=== PATIENT | male | born 1970 | race Caucasian/White ===

== ENCOUNTER 2021-05-16 14:14 | Emergency (ER) | payer MEDICAID ==
[2021-05-16] MEDS ORDERED: Sodium Chloride 0.9% 10 ML Syringe FLUSH PRN (15:41)
[2021-05-16] MEDS ORDERED: Sodium Chloride 0.9% 1,000 ML IV SCH (15:45)
== END 2021-05-16 17:41 | disposition home or self-care (01) ==
LOC: JP.ED 14:14
DX: I95.1 Orthostatic hypotension (principal); E66.9 Obesity, unspecified; Z68.34 Body mass index [BMI] 34.0-34.9, adult; Z88.0 Allergy status to penicillin; Z88.2 Allergy status to sulfonamides; Z79.01 Long term (current) use of anticoagulants; Z79.899 Other long term (current) drug therapy; Z72.0 Tobacco use
CPT/HCPCS: 36415; 80053; 84484; 85025; 85379; 99283; 99284; J7030

== ENCOUNTER 2023-08-23 05:13 | Emergency (ER) | payer MEDICAID ==
[2023-08-23 05:45] LABS: BASOPHILS ABSOLUTE AUTO 0.04 K/uL (0.00-0.10); BASOPHILS PERCENT AUTO 0.4 % (0.1-1.3); EOSINOPHILS PERCENT AUTO 1.1 % (0.0-5.4); HEMOGLOBIN 12.3 g/dL (12.9-16.9); IMMATURE GRAN ABSOLUTE AUTO 0.03 K/uL (0.00-0.23); IMMATURE GRAN PERCENT AUTO 0.3 % (0.0-0.7); LYMPHOCYTES ABSOLUTE AUTO 3.33 K/uL (0.8-3.3); LYMPHOCYTES PERCENT AUTO 36.9 % (11.4-47.7); MEAN CORPUSCULAR HGB CONC 35.1 g/dL (31.6-35.5); MEAN CORPUSCULAR VOLUME 99.7 fL (81.4-99.0); MONOCYTES PERCENT AUTO 6.7 % (3.3-12.6); NEUTROPHILS ABSOLUTE AUTO 4.92 K/uL (1.0-7.6); NEUTROPHILS PERCENT AUTO 54.6 % (40.0-78.1); PLATELET COUNT,PLT 162 K/uL (130-375); RED BLOOD CELL COUNT 3.51 M/uL (4.14-5.76)
[2023-08-23 06:06] LABS: A/G RATIO 0.6 (1.2-2.2); ALANINE AMINOTRANSFERASE,ALT 35 U/L (12-78); ALBUMIN 2.4 g/dL (3.4-5.0); ALKALINE PHOSPHATASE 181 U/L (46-116); ASPARTATE AMNIOTRANSFERASE,AST 71 U/L (15-37); BILIRUBIN TOTAL 1.3 mg/dL (0.2-1.0); BLOOD UREA NITROGEN,BUN 4 mg/dL (7-18); CALCIUM 8.1 mg/dL (8.5-10.1); CARBON DIOXIDE,CO2 29 mmol/L (21-32); CHLORIDE,CL 93 mmol/L (100-108); EST CRCL DRUG DOSING (CG) 104.88 mL/min; ESTIMATED GFR 90 mL/min (>60); GLUCOSE RANDOM 113 mg/dL (74-106); POTASSIUM,K 4.2 mmol/L (3.6-5.2); PROTEIN TOTAL,TP 6.5 g/dL (6.4-8.2); SODIUM,NA 130 mmol/L (140-148)
[2023-08-23 06:07] LABS: ANION GAP 12.2 mmol/L (5.0-14.0)
[2023-08-23 06:26] LABS: INR 2.1; PROTHROMBIN TIME 20.5 sec (9.2-10.6)
== END 2023-08-23 10:30 | disposition home or self-care (01) ==
LOC: JP.ED 05:13
DX: R53.1 Weakness (principal); I11.0 Hypertensive heart disease with heart failure; I50.9 Heart failure, unspecified; E66.9 Obesity, unspecified; F17.210 Nicotine dependence, cigarettes, uncomplicated; Z68.32 Body mass index [BMI] 32.0-32.9, adult; Z79.01 Long term (current) use of anticoagulants; Z79.899 Other long term (current) drug therapy; Z88.0 Allergy status to penicillin; Z88.2 Allergy status to sulfonamides
CPT/HCPCS: 36415; 80053; 80307; 83605; 85025; 85610; 86140; 99285

== ENCOUNTER 2024-08-09 20:11 | Inpatient (IN) | payer MEDICAID, MEDICARE ==
[2024-08-09 21:13] LABS: BASOPHILS ABSOLUTE AUTO 0.03 K/uL (0.00-0.10); BASOPHILS PERCENT AUTO 0.2 % (0.1-1.3); EOSINOPHILS PERCENT AUTO 0.1 % (0.0-5.4); IMMATURE GRAN ABSOLUTE AUTO 0.07 K/uL (0.00-0.23); IMMATURE GRAN PERCENT AUTO 0.5 % (0.0-0.7); LYMPHOCYTES ABSOLUTE AUTO 1.21 K/uL (0.8-3.3); LYMPHOCYTES PERCENT AUTO 9.0 % (11.4-47.7); MONOCYTES ABSOLUTE AUTO 1.05 K/uL (0.20-0.90); MONOCYTES PERCENT AUTO 7.8 % (3.3-12.6); NEUTROPHILS ABSOLUTE AUTO 11.09 K/uL (1.0-7.6); NEUTROPHILS PERCENT AUTO 82.4 % (40.0-78.1); PLATELET COUNT,PLT 327 K/uL (130-375); RED BLOOD CELL COUNT 2.43 M/uL (4.14-5.76); WHITE BLOOD CELL COUNT,WBC 13.5 K/uL (3.2-11.0)
[2024-08-09 21:17] LABS: EOSINOPHILS ABSOLUTE AUTO 0.01 K/uL (0.00-0.40)
[2024-08-09 21:35] LABS: A/G RATIO 0.4 (1.2-2.2); ALANINE AMINOTRANSFERASE,ALT 18 U/L (12-78); ASPARTATE AMNIOTRANSFERASE,AST 26 U/L (15-37); BILIRUBIN TOTAL 1.3 mg/dL (0.2-1.0); BLOOD UREA NITROGEN,BUN 11 mg/dL (7-18); CARBON DIOXIDE,CO2 31 mmol/L (21-32); CHLORIDE,CL 93 mmol/L (100-108); CREATININE 1.2 mg/dL (0.8-1.3); EST CRCL DRUG DOSING (CG) 86.40 mL/min; ESTIMATED GFR 72 mL/min (>60); GLUCOSE RANDOM 149 mg/dL (74-106); PROTEIN TOTAL,TP 6.2 g/dL (6.4-8.2); SODIUM,NA 139 mmol/L (140-148)
[2024-08-09 21:43] LABS: POTASSIUM,K 2.0 mmol/L (3.6-5.2)
[2024-08-09 21:58] LABS: INR 3.3
[2024-08-09] MEDS: Potassium Chloride 20 MEQ Tab.ER PO ONE (22:17)
[2024-08-09] MEDS: Potassium Chloride 20 MEQ in Premix Bag 1 BAG IV ONE (22:23)
[2024-08-10] MEDS ORDERED: Sodium Chloride 0.9% 10 ML Syringe FLUSH PRN (00:04)
[2024-08-10] MEDS ORDERED: Albuterol 0.083% 2.5 MG/3 ML Neb Soln NEB PRN (00:04)
[2024-08-10 00:35] LABS: APPEARANCE,URINE CLEAR (CLEAR); GLUCOSE,URINE 100 mg/dL (NEGATIVE); OCCULT BLOOD,URINE MODERATE (NEGATIVE)
[2024-08-10 00:43] LABS: EPITHELIAL CELLS,URINE MODERATE
[2024-08-10] MEDS: Iopamidol 755 Mg/ML 100 ML Bottle IV SCH (01:26)
[2024-08-10] MEDS: Sodium Chloride 0.9% 10 ML Syringe FLUSH PRN (01:28)
[2024-08-10] MEDS: Magnesium Sulfate 2 GM/50 mL 2 GM in Premix Bag 1 BAG IV SCH (01:30)
[2024-08-10] MEDS: Potassium Chloride 20 MEQ Tab.ER PO ONE ×4 (02:15→21:25)
[2024-08-10 05:21] LABS: PLATELET COUNT,PLT 292.0 K/uL (130-375); RED BLOOD CELL COUNT 1.96 M/uL (4.14-5.76); WHITE BLOOD CELL COUNT,WBC 13.5 K/uL (3.2-11.0)
[2024-08-10 05:37] LABS: INR 2.9
[2024-08-10 06:08] LABS: BLOOD UREA NITROGEN,BUN 12.0 mg/dL (7-18); CARBON DIOXIDE,CO2 30.0 mmol/L (21-32); CHLORIDE,CL 98.0 mmol/L (100-108); CREATININE 1.0 mg/dL (0.8-1.3); EST CRCL DRUG DOSING (CG) 103.68 mL/min; ESTIMATED GFR 89.0 mL/min (>60); FOLIC ACID 3.6 ng/ml (8.6-58.9); GLUCOSE RANDOM 120.0 mg/dL (74-106); SODIUM,NA 139.0 mmol/L (140-148)
[2024-08-10 06:15] LABS: POTASSIUM,K 2.3 mmol/L (3.6-5.2)
[2024-08-10] MEDS: Potassium Chloride 20 MEQ Tab.ER PO SCH (08:57)
[2024-08-10] MEDS: Piperacillin/Tazobactam/Dext 4.5 GM in Premix Bag 1 BAG IV SCH (10:34)
[2024-08-10 13:11] LABS: BLOOD UREA NITROGEN,BUN 15.0 mg/dL (7-18); CARBON DIOXIDE,CO2 26.0 mmol/L (21-32); CHLORIDE,CL 96.0 mmol/L (100-108); CREATININE 1.2 mg/dL (0.8-1.3); EST CRCL DRUG DOSING (CG) 86.4 mL/min; ESTIMATED GFR 72.0 mL/min (>60); GLUCOSE RANDOM 168.0 mg/dL (74-106); SODIUM,NA 134.0 mmol/L (140-148)
[2024-08-10 13:13] LABS: POTASSIUM,K 2.8 mmol/L (3.6-5.2)
[2024-08-10] MEDS ORDERED: Calcium Gluconate 10% 1 GM/10 ML SDV IVPUSH ONE (13:24)
[2024-08-11] MEDS: Ondansetron 4 MG/2 ML SDV IV PRN (00:51)
[2024-08-11] MEDS: LORazepam 2 MG/ML SDV IVPUSH PRN (02:00)
[2024-08-11 06:01] LABS: PLATELET COUNT,PLT 308.0 K/uL (130-375); RED BLOOD CELL COUNT 2.09 M/uL (4.14-5.76); WHITE BLOOD CELL COUNT,WBC 14.2 K/uL (3.2-11.0)
[2024-08-11 06:16] LABS: BLOOD UREA NITROGEN,BUN 11.0 mg/dL (7-18); CARBON DIOXIDE,CO2 28.0 mmol/L (21-32); CHLORIDE,CL 97.0 mmol/L (100-108); CREATININE 1.0 mg/dL (0.8-1.3); EST CRCL DRUG DOSING (CG) 103.68 mL/min; ESTIMATED GFR 89.0 mL/min (>60); GLUCOSE RANDOM 144.0 mg/dL (74-106); POTASSIUM,K 3.4 mmol/L (3.6-5.2); SODIUM,NA 133.0 mmol/L (140-148)
[2024-08-11 06:18] LABS: INR 2.4
[2024-08-11] MEDS: Potassium Chloride 20 MEQ Tab.ER PO ONE (08:20)
[2024-08-11] MEDS: Calcium Carbonate/Vitamin D3 1500 MG-400 Units Tab PO SCH (08:20)
[2024-08-11] MEDS ORDERED: Propofol 200 MG/20 ML SDV ONE (16:19)
[2024-08-11] MEDS ORDERED: fentaNYL 100 MCG/2 ML SDV ONE (16:19)
[2024-08-11] MEDS ORDERED: Midazolam 1 MG/ML 2 ML SDV ONE (16:19)
[2024-08-12 05:55] LABS: PLATELET COUNT,PLT 326.0 K/uL (130-375); RED BLOOD CELL COUNT 1.82 M/uL (4.14-5.76); WHITE BLOOD CELL COUNT,WBC 9.1 K/uL (3.2-11.0)
[2024-08-12 06:00] LABS: INR 2.2
[2024-08-12 06:18] LABS: A/G RATIO 0.5 (1.2-2.2); ALANINE AMINOTRANSFERASE,ALT 28 U/L (12-78); ASPARTATE AMNIOTRANSFERASE,AST 37 U/L (15-37); BILIRUBIN TOTAL 1.0 mg/dL (0.2-1.0); BLOOD UREA NITROGEN,BUN 6 mg/dL (7-18); CARBON DIOXIDE,CO2 26 mmol/L (21-32); CHLORIDE,CL 100 mmol/L (100-108); CREATININE 0.8 mg/dL (0.8-1.3); EST CRCL DRUG DOSING (CG) 129.60 mL/min; ESTIMATED GFR 105 mL/min (>60); GLUCOSE RANDOM 98 mg/dL (74-106); PROTEIN TOTAL,TP 5.4 g/dL (6.4-8.2); SODIUM,NA 137 mmol/L (140-148); TSH ULTRASENSITIVE 6.182 uIU/mL (0.358-3.740)
[2024-08-12 06:24] LABS: POTASSIUM,K 2.9 mmol/L (3.6-5.2)
[2024-08-12] MEDS: Potassium Chloride 20 MEQ Tab.ER PO ONE ×2 (06:44→14:45)
[2024-08-12] MEDS: Magnesium Sulfate 2 GM/50 mL 2 GM in Premix Bag 1 BAG IV SCH (09:15)
[2024-08-12] MEDS: Albumin Human 25 GM in Premix Bag 1 BAG IV ONE (13:54)
[2024-08-13 06:03] LABS: BLOOD UREA NITROGEN,BUN 8.0 mg/dL (7-18); CARBON DIOXIDE,CO2 24.0 mmol/L (21-32); CHLORIDE,CL 104.0 mmol/L (100-108); CREATININE 0.9 mg/dL (0.8-1.3); EST CRCL DRUG DOSING (CG) 115.2 mL/min; ESTIMATED GFR 101.0 mL/min (>60); GLUCOSE RANDOM 108.0 mg/dL (74-106); POTASSIUM,K 3.9 mmol/L (3.6-5.2); SODIUM,NA 138.0 mmol/L (140-148)
[2024-08-13 06:04] LABS: PLATELET COUNT,PLT 280.0 K/uL (130-375); RED BLOOD CELL COUNT 2.24 M/uL (4.14-5.76); WHITE BLOOD CELL COUNT,WBC 8.6 K/uL (3.2-11.0)
[2024-08-13 06:05] LABS: INR 2.0
[2024-08-14 05:59] LABS: PLATELET COUNT,PLT 361.0 K/uL (130-375); RED BLOOD CELL COUNT 2.15 M/uL (4.14-5.76); WHITE BLOOD CELL COUNT,WBC 10.9 K/uL (3.2-11.0)
[2024-08-14 06:23] LABS: A/G RATIO 0.5 (1.2-2.2); ALANINE AMINOTRANSFERASE,ALT 35 U/L (12-78); ASPARTATE AMNIOTRANSFERASE,AST 46 U/L (15-37); BILIRUBIN DIRECT 0.45 mg/dL (0.0-0.2); BILIRUBIN INDIRECT 0.35; BILIRUBIN TOTAL 0.8 mg/dL (0.2-1.0); BLOOD UREA NITROGEN,BUN 8 mg/dL (7-18); CARBON DIOXIDE,CO2 29 mmol/L (21-32); CHLORIDE,CL 107 mmol/L (100-108); CREATININE 0.8 mg/dL (0.8-1.3); EST CRCL DRUG DOSING (CG) 129.60 mL/min; ESTIMATED GFR 105 mL/min (>60); GLUCOSE RANDOM 108 mg/dL (74-106); PHOSPHORUS 2.8 mg/dL (2.5-4.9); POTASSIUM,K 4.0 mmol/L (3.6-5.2); PROTEIN TOTAL,TP 5.6 g/dL (6.4-8.2); SODIUM,NA 142 mmol/L (140-148)
[2024-08-14] MEDS ORDERED: Midazolam 1 MG/ML 2 ML SDV ONE (07:58)
[2024-08-14] MEDS ORDERED: Propofol 200 MG/20 ML SDV ONE (07:58)
[2024-08-14] MEDS ORDERED: fentaNYL 100 MCG/2 ML SDV ONE (07:58)
[2024-08-14] MEDS: Magnesium Sulfate 2 GM/50 mL 2 GM in Premix Bag 1 BAG IV ONE (13:17)
[2024-08-15 05:43] LABS: PLATELET COUNT,PLT 416.0 K/uL (130-375); WHITE BLOOD CELL COUNT,WBC 13.4 K/uL (3.2-11.0)
[2024-08-15 06:02] LABS: BLOOD UREA NITROGEN,BUN 10 mg/dL (7-18); CARBON DIOXIDE,CO2 28 mmol/L (21-32); CHLORIDE,CL 104 mmol/L (100-108); CREATININE 0.9 mg/dL (0.8-1.3); EST CRCL DRUG DOSING (CG) 115.20 mL/min; ESTIMATED GFR 101 mL/min (>60); GLUCOSE RANDOM 115 mg/dL (74-106); PHOSPHORUS 3.0 mg/dL (2.5-4.9); POTASSIUM,K 4.5 mmol/L (3.6-5.2); SODIUM,NA 138 mmol/L (140-148)
[2024-08-15 06:45] LABS: RED BLOOD CELL COUNT 2.26 M/uL (4.14-5.76)
[2024-08-15] MEDS ORDERED: Dimethicone 20%/Zinc Oxide 25% 56 GM Spray Bottle TOP PRN ×2 (15:22→16:19)
[2024-08-16 06:08] LABS: PLATELET COUNT,PLT 431.0 K/uL (130-375); RED BLOOD CELL COUNT 2.1 M/uL (4.14-5.76); WHITE BLOOD CELL COUNT,WBC 11.1 K/uL (3.2-11.0)
[2024-08-16 06:26] LABS: BLOOD UREA NITROGEN,BUN 10 mg/dL (7-18); CARBON DIOXIDE,CO2 27 mmol/L (21-32); CHLORIDE,CL 107 mmol/L (100-108); CREATININE 0.8 mg/dL (0.8-1.3); EST CRCL DRUG DOSING (CG) 89.80 mL/min; ESTIMATED GFR 105 mL/min (>60); GLUCOSE RANDOM 105 mg/dL (74-106); PHOSPHORUS 4.3 mg/dL (2.5-4.9); POTASSIUM,K 4.5 mmol/L (3.6-5.2); SODIUM,NA 141 mmol/L (140-148)
[2024-08-17 05:50] LABS: PLATELET COUNT,PLT 423.0 K/uL (130-375); RED BLOOD CELL COUNT 2.02 M/uL (4.14-5.76); WHITE BLOOD CELL COUNT,WBC 9.9 K/uL (3.2-11.0)
[2024-08-17 06:09] LABS: BLOOD UREA NITROGEN,BUN 11 mg/dL (7-18); CARBON DIOXIDE,CO2 27 mmol/L (21-32); CHLORIDE,CL 105 mmol/L (100-108); CREATININE 0.8 mg/dL (0.8-1.3); EST CRCL DRUG DOSING (CG) 89.80 mL/min; ESTIMATED GFR 105 mL/min (>60); GLUCOSE RANDOM 109 mg/dL (74-106); PHOSPHORUS 4.4 mg/dL (2.5-4.9); POTASSIUM,K 4.4 mmol/L (3.6-5.2); SODIUM,NA 141 mmol/L (140-148)
[2024-08-17] MEDS: Magnesium Sulfate 2 GM/50 mL 2 GM in Premix Bag 1 BAG IV SCH (13:02)
[2024-08-18] MEDS: Polyethylene Glycol 3350 Powder 238 GM Bot PO ONE (16:49)
[2024-08-19 06:06] LABS: INR 1.1
[2024-08-19] MEDS ORDERED: Propofol 200 MG/20 ML SDV ONE (10:48)
[2024-08-19] MEDS ORDERED: Midazolam 1 MG/ML 2 ML SDV ONE (10:48)
[2024-08-19] MEDS ORDERED: fentaNYL 100 MCG/2 ML SDV ONE (10:48)
[2024-08-19] MEDS: Atropine/Diphenoxylate 0.025-2.5 MG Tab PO PRN (18:01)
[2024-08-20 06:22] LABS: INR 1.0
[2024-08-20 06:38] LABS: BLOOD UREA NITROGEN,BUN 10.0 mg/dL (7-18); CARBON DIOXIDE,CO2 25.0 mmol/L (21-32); CHLORIDE,CL 103.0 mmol/L (100-108); CREATININE 0.9 mg/dL (0.8-1.3); EST CRCL DRUG DOSING (CG) 115.2 mL/min; ESTIMATED GFR 101.0 mL/min (>60); GLUCOSE RANDOM 100.0 mg/dL (74-106); POTASSIUM,K 4.7 mmol/L (3.6-5.2); SODIUM,NA 142.0 mmol/L (140-148)
[2024-08-20] MEDS: Magnesium Sulfate 2 GM/50 mL 2 GM in Premix Bag 1 BAG IV SCH (08:50)
[2024-08-21 06:10] LABS: INR 1.1
[2024-08-22 05:55] LABS: INR 1.2
[2024-08-23 06:06] LABS: INR 1.2
[2024-08-24 06:03] LABS: INR 1.3
[2024-08-25 06:30] LABS: INR 1.2
[2024-08-26 09:20] LABS: INR 1.2
[2024-08-27 06:04] LABS: INR 1.5
[2024-08-28 06:09] LABS: INR 1.9
[2024-08-29 05:49] LABS: PLATELET COUNT,PLT 262.0 K/uL (130-375); RED BLOOD CELL COUNT 2.39 M/uL (4.14-5.76); WHITE BLOOD CELL COUNT,WBC 8.2 K/uL (3.2-11.0)
[2024-08-29 06:05] LABS: BLOOD UREA NITROGEN,BUN 23.0 mg/dL (7-18); CARBON DIOXIDE,CO2 29.0 mmol/L (21-32); CHLORIDE,CL 101.0 mmol/L (100-108); CREATININE 0.8 mg/dL (0.8-1.3); EST CRCL DRUG DOSING (CG) 129.6 mL/min; ESTIMATED GFR 105.0 mL/min (>60); GLUCOSE RANDOM 111.0 mg/dL (74-106); POTASSIUM,K 4.2 mmol/L (3.6-5.2); SODIUM,NA 137.0 mmol/L (140-148)
[2024-08-29 06:09] LABS: INR 1.8
[2024-08-30 06:01] LABS: INR 1.7
[2024-08-31 06:05] LABS: INR 1.9
== END 2024-08-31 10:27 | DRG 853 ==
LOC: JP.ED 20:11 → JP.MS 23:39
PROVIDERS: ADMIT Hospitalist; ATTEND Internal Medicine
PROC: 0DBH8ZZ Excision of Cecum, Via Natural or Artificial Opening Endoscopic (ICD-10-PCS; principal; 2024-08-09)
PROC: 3E03329 Introduction of Other Anti-infective into Peripheral Vein, Percutaneous Approach (ICD-10-PCS; principal; 2024-08-09)
PROC: 0LBV0ZZ Excision of Right Foot Tendon, Open Approach (ICD-10-PCS; principal; 2024-08-09)
PROC: 0DBK8ZZ Excision of Ascending Colon, Via Natural or Artificial Opening Endoscopic (ICD-10-PCS; principal; 2024-08-09)
PROC: 0DBL8ZZ Excision of Transverse Colon, Via Natural or Artificial Opening Endoscopic (ICD-10-PCS; principal; 2024-08-09)
PROC: 30233N1 Transfusion of Nonautologous Red Blood Cells into Peripheral Vein, Percutaneous Approach (ICD-10-PCS; principal; 2024-08-09)
PROC: 0DB48ZX Excision of Esophagogastric Junction, Via Natural or Artificial Opening Endoscopic, Diagnostic (ICD-10-PCS; principal; 2024-08-09)
PROC: 0DBM8ZZ Excision of Descending Colon, Via Natural or Artificial Opening Endoscopic (ICD-10-PCS; principal; 2024-08-09)
PROC: 0LUN0KZ Supplement Right Lower Leg Tendon with Nonautologous Tissue Substitute, Open Approach (ICD-10-PCS; 2024-08-09)
PROC: 30233N1 Transfusion of Nonautologous Red Blood Cells into Peripheral Vein, Percutaneous Approach (ICD-10-PCS; 2024-08-09)
DX: A41.9 Sepsis, unspecified organism (principal); E43 Unspecified severe protein-calorie malnutrition; J18.9 Pneumonia, unspecified organism; L97.518 Non-pressure chronic ulcer of other part of right foot with other specified severity; F17.200 Nicotine dependence, unspecified, uncomplicated; I50.9 Heart failure, unspecified; E78.00 Pure hypercholesterolemia, unspecified; K21.9 Gastro-esophageal reflux disease without esophagitis; F32.A Depression, unspecified; E66.9 Obesity, unspecified; E83.42 Hypomagnesemia; F10.20 Alcohol dependence, uncomplicated; D53.9 Nutritional anemia, unspecified; E86.0 Dehydration; E87.6 Hypokalemia; E83.51 Hypocalcemia; G62.9 Polyneuropathy, unspecified; Z88.0 Allergy status to penicillin; Z88.2 Allergy status to sulfonamides; Z68.26 Body mass index [BMI] 26.0-26.9, adult; Z79.01 Long term (current) use of anticoagulants; Z86.718 Personal history of other venous thrombosis and embolism; Z79.899 Other long term (current) drug therapy
CPT/HCPCS: 00400-QZ; 00813-QZ; 36415; 36430; 71045; 71045-26; 71275; 74177; 80048; 80053; 80069; 80076; 81001; 82330; 82550; 82607; 82746; 83605; 83735; 84132; 84439; 84443; 85018; 85025; 85027; 85610; 86140; 86850; 86900; 86901; 86920; 86922; 87040; 87046; 87070; 87075; 87077; 87186; 87205; 87427; 87493; 88305; 89055; 93005; 93010; 96361; 96365; 96367; 97110-GO; 97110-GP; 97112-GP; 97116-GP; 97162-GP; 97165-GO; 97530-GP; 97535-GO; 97605; 99223; 99231; 99232; 99239; 99284; 99285-25; A9270-GY; C1758; J0612; J0665; J2060; J2250; J2405; J2543; J2704; J3010; J3370; J3430; J3475; J3480; J3490; J7030; J7050; P9016; P9047; Q4133; Q9967

== ENCOUNTER 2024-10-14 07:53 | Day surgery (SDC) | payer MEDICAID, MEDICARE ==
[2024-10-14 08:21] LABS: PLATELET COUNT,PLT 276.0 K/uL (130-375); RED BLOOD CELL COUNT 4.13 M/uL (4.14-5.76); WHITE BLOOD CELL COUNT,WBC 9.8 K/uL (3.2-11.0)
[2024-10-14 08:36] LABS: BLOOD UREA NITROGEN,BUN 14.0 mg/dL (7-18); CARBON DIOXIDE,CO2 34.0 mmol/L (21-32); CHLORIDE,CL 96.0 mmol/L (100-108); CREATININE 0.9 mg/dL (0.8-1.3); EST CRCL DRUG DOSING (CG) 115.2 mL/min; ESTIMATED GFR 101.0 mL/min (>60); GLUCOSE RANDOM 108.0 mg/dL (74-106); POTASSIUM,K 4.0 mmol/L (3.6-5.2); SODIUM,NA 136.0 mmol/L (140-148)
[2024-10-14] MEDS: Nozin Nasal Sanitizer NASBOTH ONE (08:52)
[2024-10-14] MEDS ORDERED: fentaNYL 250 MCG/5 ML SDV ONE (08:56)
[2024-10-14] MEDS ORDERED: Succinylcholine 200 MG/10 ML MDV ONE (08:57)
[2024-10-14] MEDS ORDERED: Ondansetron 4 MG/2 ML SDV ONE (08:57)
[2024-10-14] MEDS ORDERED: Glycopyrrolate 0.2 MG/ML 5 ML MDV ONE (08:57)
[2024-10-14] MEDS ORDERED: Dexamethasone 4 MG/ML SDV ONE (08:57)
[2024-10-14] MEDS ORDERED: Propofol 200 MG/20 ML SDV ONE (08:57)
[2024-10-14] MEDS: Lactated Ringers 1,000 ML IV SCH (08:59)
[2024-10-14] MEDS: Mineral Oil 10 ML Bottle ONE (10:55)
[2024-10-14] MEDS: Lidocaine 1% with EPINEPHrine 1:100,000 50 ML MDV ONE (10:55)
[2024-10-14] MEDS ORDERED: ePHEDrine 50 MG/ML SDV ONE (11:23)
[2024-10-14] MEDS ORDERED: Atropine/Diphenoxylate 0.025-2.5 MG Tab PO PRN (11:46)
[2024-10-14] MEDS ORDERED: Ondansetron 4 MG/2 ML SDV IVPUSH PRN (11:47)
[2024-10-14] MEDS ORDERED: Ketorolac 15 MG/ML SDV IVPUSH PRN (11:47)
[2024-10-14] MEDS: Calcium Carbonate/Vitamin D3 1500 MG-400 Units Tab PO SCH (20:40)
[2024-10-14] MEDS: Nozin Nasal Sanitizer NASBOTH SCH (20:40)
[2024-10-15 05:23] LABS: PLATELET COUNT,PLT 231.0 K/uL (130-375); RED BLOOD CELL COUNT 3.66 M/uL (4.14-5.76); WHITE BLOOD CELL COUNT,WBC 12.3 K/uL (3.2-11.0)
[2024-10-15] MEDS: Multivitamins with Iron/Calcium/Folic Acid/Minerals Tab PO SCH (09:08)
[2024-10-15] MEDS: Potassium Chloride 20 MEQ Tab.ER PO SCH (09:09)
== END 2024-10-15 15:06 | disposition home or self-care (01) ==
LOC: JP.SDS 07:53 → EDSTATUS 09:30 → JP.MS 11:48 → JP.SDS 10-15 15:06
PROVIDERS: ATTEND Specialist
DX: L89.619 Pressure ulcer of right heel, unspecified stage (principal); I10 Essential (primary) hypertension; Z88.0 Allergy status to penicillin; Z88.8 Allergy status to other drugs, medicaments and biological substances; Z79.899 Other long term (current) drug therapy
CPT/HCPCS: 15120; 36415; 80048; 85027; 97110; 97162; 97165; 97530; A9270; J0330; J0690; J1100; J1596; J2405; J2704; J2710; J3010; J7030; J7120; J0665; J3490